=== PATIENT | female | born 1935 | race Caucasian/White ===

== ENCOUNTER 2016-11-10 13:33 | Emergency (ER) | payer MEDICARE, BC ==
[2016-11-10 13:34] VITALS: BMI 24.6
--- NOTE | 2016-11-10 17:08 | EDPRACDOC ---
- General Information Chief Complaint: Generalized Weakness Stated Complaint: SHAKING EAR PROBLEMS Time Seen by Provider: 11/10/16 16:56 Mode Of Arrival: Car Home Medications: Home Medications Aspirin 81 mg PO HS 08/22/16 Docosahexanoic Acid/Epa [Fish Oil Concentrate Softgel] 1,000 mg PO BID 08/22/16 Fluvastatin Sodium [Fluvastatin ER] 80 mg PO HS 08/22/16 Glucosamine/D3/Boswellia Lainey [Osteo Bi-Flex Tablet] 1 tab PO BID 08/22/16 Nebivolol HCl [Bystolic] 10 mg PO HS 08/22/16 Calcium Carbonate/Vitamin D3 [Calcium 500 + Vit D 200 Tablet] 1 each PO BID Ciprofloxacin HCl [Cipro] 500 mg PO BID #20 tab 11/10/16 Cyanocobalamin (Vitamin B-12) [Vitamin B-12 (cyanocobalamin)] 250 mcg PO DAILY 11/10/16 Hydroxyurea [Hydrea] 500 mg PO MOWEFR 11/10/16 Magnesium 400 mg PO DAILY 11/10/16 Allergies/Adverse Reactions: Allergies Allergy/AdvReac Type Severity Reaction Status Date / Time methocarbamol [From Robaxin] Allergy Unknown Verified 11/10/16 14:01 - History of Present Illness Onset: [employer] Exact Onset of Symptoms: Unknown Date Symptoms Started: 11/10/16 HPI: PATIENT PRESENTS C/O TREMORS THAT STARTED SUDDENLY. FAMILY STATES IT WAS BAD UNTIL SHE ARRIVED. NOTED THAT TREMORS DECREASED WHEN PATIENT WOULD CONCENTRATE ON SOMETHING ELSE. NO LOC. NO TONGUE BITING. Symptoms Started: Reports: Suddenly Symptoms Description: Improved Symptom Severity: Reports: Does not affect activitiy ED Past Medical History - History Reviewed Yes Nurses notes reviewed and agree except as marked Travel Outside of [place] in the Last 3 Months?: No - Patient Medical History Cardiac History: Reports: Hypertension Musculoskeletal History: Reports: Arthritis (hips) Systemic History: Reports: Anemia. Denies: Cancer Surgical History: Reports: Cholecystectomy, Hysterectomy (PARTIAL) - Family Medical History Reports: Hypertension (mom, dad), Diabetes (mom), Stroke (mom), Cardiac Disorders (dad). Denies: Cancer - Social Medical History Smoking Status: Never smoker ETOH: None Substance Abuse: None Lives With: Family Lives In: Home EDM Review of Systems - Review of Systems ROS Negative Except as Marked: Yes All systems reviewed and were negative except as marked Constitutional: Fatigue. negative: Chills, Fever, Loss of Appetite, Weakness Eyes: No Symptoms Reported. negative: Redness, Blurred Vision, Double Vision, Discharge, Pain, Light Sensitive, Photophobia Ears: No Symptoms Reported. negative: Pain, Hearing Loss, Drainage, Ear Pulling Throat: No Symptoms Reported. negative: Pain, Swelling Nose: No Symptoms Reported. negative: Congestion, Bleeding, Discharge, Injection, Swelling, Deformity, Ecchymosis, Tender, Abrasion, Laceration Mouth: No Symptoms Reported. negative: Pain, Drooling Respiratory: No Symptoms Reported. negative: Cough, Brassy Cough, Barky Cough, Shortness of Breath, Wheezing, Hemoptysis Cardiovascular: No Symptoms Reported. negative: Chest Pain, Palpitations, Syncope, Edema, Orthopnea, PND, Skin Mottling, Cyanosis Gastrointestinal: No Symptoms Reported. negative: Pain, Constipation, Nausea, Vomiting, Diarrhea, Melena, Formula Intolerance Genitourinary: No Symptoms Reported. negative: Dysuria, Hematuria, Frequency, Discharge, Bleeding, Testicular Pain, Neurological: No Symptoms Reported. negative: Headache, Dizziness, Seizure, Numbness, Weakness, Speech Difficulty, Gait Difficulty Musculoskeletal: No Symptoms Reported. negative: Neck, Chestwall, Ribs, Back, Shoulder, Arm, Elbow, Forearm, Wrist, Hand, Pelvis, Hip, Femur, Knee, Leg, Ankle , Foot Integumentary: No Symptoms Reported. negative: Itching, Rash, Bruising, Wound Allergic/Immunologic: No Symptoms Reported. negative: Hives, Itching Hematologic: No Symptoms Reported. negative: Lymphadenopathy, Easy Bruising, Easy Bleeding Endocrine: No Symptoms Reported. negative: Weight Gain, Weight Loss Psychiatric: No Symptoms Reported. negative: Anxiety, Depression, Hallucinations, Insomnia, Suicidal - Physical Exam Constitutional: Alert (Awake), No apparent distress Oriented to: Time, Person, Place Last recorded Vital Signs: Last Vital Signs Temp 97.8 F 11/10/16 13:56 Pulse 85 11/10/16 13:56 Resp 20 11/10/16 13:56 BP 157/70 11/10/16 13:56 Pulse Ox 95 11/10/16 13:56 Oxygen Pulse Oxygen Saturation 95 O2 Device Room Air Oxygen Flow Rate Fraction of Inspired Oxygen ( FIO2) - HEENT Head: Normal ( normocephalic) Eye Exam: Normal (PERRL, EOMI, Sclera white) Oropharynx: Normal (Pharynx:Moist without exudate,Gums-no swelling) Tympanic Membrane: Normal ENT EAC: Normal TMJ: Normal Nose: No Symptoms Reported (septum midline) Neck: Normal (FROM, trachea at midline) - Respiratory/Cardiovascular Respiratory: Normal - CTA (BBS clear to auscultation without adventitious sounds ) Cardiovascular: Normal (RRR without murmur, gallop or rub) - GI Auscultation: Normal (NABS) Palpation: Normal (Soft,No rebound or guarding, non distended) Tenderness: Non tender Laguans's Sign: Negative - Musculoskeletal Back: Normal (Non-Tender) Extremities: Normal (Normal tone, Pulses 2+ No cyanosis or edema, FROM) - Integumentary Skin: Normal, Warm, Dry Lymphatics: Normal (no adenopathy) - Neurologic Memory Impaired: Normal Motor Function: Normal (Normal tone, Pulses 2+ No cyanosis or edema, FROM) Cranial Nerve: Normal (CN II-X11 intact sensation, strength 5/5) Cerebellar: Normal Mood Description: Normal Perception: Normal - Results 11/10/16 17:15 11/10/16 17:15 - EKG EKG #1 EKG Time: 17:18 -: Yes EKG interpreted by me Rate: bpm: [address]: Normal Rhythm: NSR Block: None Hypertrophy: None ST: Normal Decision Time to Discharge: 19:18 - Departure Yes I personally saw and evaluated the patient. Disposition: Home Condition: Good Final Diagnosis: Dehydration UTI (urinary tract infection) Qualifiers: Urinary tract infection type: acute cystitis Hematuria presence: without hematuria Qualified Code(s): N30.00 - Acute cystitis without hematuria Instructions: Weakness (General), Urinary Tract Infection in Women (ED), Dysuria Education/Counseling Given To: Patient, Family Member Education/Counseling Given Regarding: Diagnosis, Treatment, Prognosis, Follow Up Referrals: Raymond Mckeon MD [Primary Care Provider] - One Week Prescriptions: Ciprofloxacin HCl [Cipro] 500 mg PO BID #20 tab
[2016-11-10 17:21] LABS: AUTOMATED BASOPHIL 1.9 % (0-2); AUTOMATED EOSINOPHIL 0.5 % (0-5); AUTOMATED LYMPH 23.5 % (17-44); AUTOMATED MONOCYTE 10.1 % (3-10); MPV 8.6 fL (7.4-10.4)
[2016-11-10 17:32] LABS: PARTIAL THROMB. TIME 24.5 SEC (22-35)
[2016-11-10 17:34] LABS: BLOOD UREA NITROGEN 25 MG/DL (7-17); CALCIUM 9.6 MG/DL (8.4-10.2); CALCULATED OSMOLALITY 273 MOs/Kg (270-290); CHLORIDE 101 mEq/L (98-107); GLUCOSE 102 MG/DL (70-99); SODIUM LEVEL 140 mEq/L (137-146)
--- NOTE | 2016-11-10 17:56 | DIRPT ---
CLINICAL DATA: Shortness of breath today EXAM: PORTABLE CHEST 1 VIEW COMPARISON: None. FINDINGS: Heart size and vascular pattern normal. Lungs clear. No effusions. No pneumothorax. Calcified aortic arch appear IMPRESSION: Aortic atherosclerotic calcification. No acute findings. Electronically Signed By: Pete Orta M.D. On: 11/10/2016 17:53
--- NOTE | 2016-11-10 18:35 | DIRPT ---
CLINICAL DATA: 81-year-old female with bilateral upper extremity tremor today. Initial encounter. EXAM: CT HEAD WITHOUT CONTRAST CT CERVICAL SPINE WITHOUT CONTRAST TECHNIQUE: Multidetector CT imaging of the head and cervical spine was performed following the standard protocol without intravenous contrast. Multiplanar CT image reconstructions of the cervical spine were also generated. COMPARISON: None. FINDINGS: CT HEAD FINDINGS Visualized paranasal sinuses and mastoids are clear. No acute osseous abnormality identified. No acute orbit or scalp soft tissue findings. Calcified atherosclerosis at the skull base. Cerebral volume is within normal limits for age. No midline shift, mass effect, or evidence of intracranial mass lesion. No ventriculomegaly. Normal for age franco-white matter differentiation. No cortically based acute infarct identified. No acute intracranial hemorrhage identified. No suspicious intracranial vascular hyperdensity. CT CERVICAL SPINE FINDINGS Relatively preserved cervical lordosis. Visualized skull base is intact. No atlanto-occipital dissociation. Cervicothoracic junction alignment is within normal limits. Bilateral posterior element alignment is within normal limits. Mild multilevel anterolisthesis associated with moderate to severe facet hypertrophy greater on the left. Left C2-C3 facet joint ankylosis. Superimposed C6-C7 disc degeneration with partially calcified disc bulge. Ligament flavum hypertrophy at that level. Subsequent mild spinal stenosis (series 500, image 49). No cervical spine fracture identified. Grossly intact visualized upper thoracic levels. Negative lung apices. Calcified aortic atherosclerosis. Partially retropharyngeal course of both carotid arteries. Left greater than right carotid bifurcation calcified atherosclerosis. Otherwise negative noncontrast paraspinal soft tissues. IMPRESSION: 1. Normal for age non contrast CT appearance of the brain. 2. No acute fracture or listhesis identified in the cervical spine. Ligamentous injury is not excluded. 3. Multilevel cervical spine degeneration. Mild multifactorial spinal stenosis at C6-C7. 4. Calcified aortic atherosclerosis. Electronically Signed By: Robert Rivrea M.D. On: 11/10/2016 18:33
[2016-11-10 18:49] LABS: RBC/URINE 0-2 (0-5)
[2016-11-10 18:59] LABS: LEUKOCYTES/URINE 1+ (NEGATIVE); NITRITE/URINE NEG (NEGATIVE); URINE OCCULT BLOOD NEG (NEG/TRACE)
[2016-11-10] MEDS ORDERED: CIPROFLOXACIN HCL 500 MG TAB PO ONE (19:18)
[2016-11-10] MEDS ORDERED: NS 1,000 ML IV ONE (19:18)
[2016-11-10 21:20] VITALS: BP 171/72; PULSE 69; TEMP 98.6
== END 2016-11-10 21:00 | disposition home or self-care (01) ==
LOC: ED 13:33
DX: N30.00 Acute cystitis without hematuria (principal); R25.1 Tremor, unspecified
CPT/HCPCS: 36415; 70450; 71010; 72125; 80053; 81001; 82962; 84484; 85025; 85610; 85730; 93005; 96360; 96361; 99284; A9270; J3490